=== PATIENT | female | born 1985 | race Caucasian/White ===

== ENCOUNTER 2019-12-04 07:12 | Emergency (ER) | payer OTHER ==
[2019-12-04] MEDS ORDERED: ACETAMINOPHEN 325 MG TABLET PO ONE (07:48)
--- NOTE | 2019-12-04 08:43 | RADIOLOGY REPORT (SQ) ---
EXAM DESCRIPTION: ANKLE RIGHT COMPLETE IMAGES COMPLETED DATE/TIME: 12/04/2019 8:33 am REASON FOR STUDY: pain, swelling COMPARISON: None. NUMBER OF VIEWS: Three views. TECHNIQUE: AP, lateral, and oblique radiographic images acquired of the right ankle. LIMITATIONS: None. FINDINGS: MINERALIZATION: Normal. BONES: There appears to be a minimally distracted avulsion injury of the navicular. Osseous minerali zation and alignment are otherwise normal with incidental note made of great toe metatarsophalangeal joint degenerative changes. JOINTS: No effusions. SOFT TISSUES: Mild medial soft tissue edema. OTHER: No other significant finding. IMPRESSION: Minimally distracted avulsion injury of the navicular with overlying soft tissue edema. TECHNICAL DOCUMENTATION: JOB ID: [id number] 2010 [employer]- All Rights Reserved Reading location - IP/workstation name: [email or web address]
--- NOTE | 2019-12-04 10:41 | ER Document Report ---
ED Extremity Problem, Lower - General Chief Complaint: Ankle Pain Stated Complaint: FALL/ANKLE PAIN Time Seen by Provider: 12/04/19 09:48 Primary Care Provider: ORTHOPEDICS [Provider Group] - Follow up as needed HERI PAREDES MD [ACTIVE STAFF] - Follow up as needed Notes: 34-year-old female presenting today with injury to right ankle which happened yesterday at 11 AM. She was walking down a step and her foot collapsed underneath her as she tripped on a step. Patient was initially able to walk after the injury. She went home and she rested. Took Mamadou aspirin which did not alleviate her pain. Also tried aspercreme with no relief. Had some tingling sensation yesterday. Reports non today. She woke up and her ankle was bruised this morning which prompted her to come to the ER. - Related Data Allergies/Adverse Reactions: clindamycin Allergy (Verified 12/04/19 07:54) Past Medical History - Social History Smoking Status: Former Smoker Family History: Reviewed & Not Pertinent Review of Systems - Review of Systems Constitutional: No symptoms reported EENT: No symptoms reported Cardiovascular: No symptoms reported Respiratory: No symptoms reported Gastrointestinal: No symptoms reported Genitourinary: No symptoms reported Female Genitourinary: No symptoms reported Musculoskeletal: See HPI Skin: See HPI Hematologic/Lymphatic: No symptoms reported Neurological/Psychological: No symptoms reported Physical Exam - Vital signs Vitals: Temp Pulse Resp BP Pulse Ox 97.9 F 107 H 18 152/102 H 100 12/04/19 07:19 12/04/19 07:19 12/04/19 07:19 12/04/19 07:19 12/04/19 07:19 Interpretation: Hypertensive - Notes Notes: Adult General: GENERAL: Alert, interacts well. No acute distress HEAD: Normocephalic, atraumatic EYES: Pupils equal, round and reactive to light. Extraocular movements intact. ENT: Airway patent. Nares patent. NECK: Full range of motion. Supple. Trachea midline. GENITOURINARY: Deferred EXTREMITIES: Right ankle is ttp along lateral mallelous, anterior ankle and medial mallelous. Associated swelling and bruising on medial ankle. 2+ capillary refill. Good sensation to light touch. 5/5 strength with flexion and extension. Limited ROM with inversion and eversion. Eversion causes pain. Moves all 4 extremities spontaneously. Normal dorsal pedis pulses bilaterally. No cyanosis. Right knee with anterior abrasion. Full ROM, no obvious deformities. Right knee is non tender to palpation. BACK: Back is non tender NEUROLOGICAL: Alert and oriented x3. Normal speech. Strength 5/ 5 in all extremities. PSYCH: Normal affect, normal mood. SKIN: 3 cm x 2 cm superficial abrasion on right knee. No swelling or warmth Course - Re-evaluation Re-evalutation: 12/04/19 10:41 Patient's x-ray of right ankle shows a minimally distracted avulsion injury of the navicular bone with overlying soft tissue edema. I discussed these findings with the patient. I will go ahead and order a posterior ankle splint. I dis cussed pain management with this patient. Patient states that she had Tylenol up in triage which helped alleviate her pain. Patient was able to drive here. I also offered an xray of the right knee. Patient declines at this time. I discussed pain control with the patient. Patient does not want any narcotics at this time. I discussed with her that she will need to follow-up with orthopedics in 2 to 3 days. Also discussed being nonweightbearing until she is seen by orthopedics. She can continue to take Tylenol help alleviate her pain. Return precautions discussed to include worsening pain or development of new symptoms. Patient acknowledges and verbalizes understanding of instructions and plan. All questions answered. Foot was reevaluated after splint was placed. Good capillary refill. No changes in neurovascular exam from previous exam. - Vital Signs Vital signs: Temp Pulse Resp BP Pulse Ox 98.1 F 95 18 147/93 H 97 12/04/19 11:43 12/04/19 11:43 12/04/19 11:43 12/04/19 11:43 12/04/19 11:43 Procedures - Immobilization Right Ankle Pre-Proc Neuro Vasc Exam: Normal Immobilizer type: Posterior ankle Performed by: PCT Post-Proc Neuro Vasc Exam: Unchanged from pre-exam Alignment checked and good: Yes Discharge - Discharge Clinical Impression: Navicular fracture, foot Qualifiers: Encounter type: initial encounter Fracture type: closed Fracture alignment: nondisplaced Laterality: right Qualified Code(s): S92.254A - Nondisplaced fracture of navicular [scaphoid] of right foot, initial encounter for closed fracture Condition: Stable Disposition: HOME, SELF-CARE Instructions: Use of Crutches ([facility]), Foot Fracture ([facility]) Additional Instructions: Your x-ray shows a small avulsion fracture of the right navicular bone. You have been placed into a splint. Please use crutches to ambulate at this time. Please follow-up with Dr. Paredes in orthopedics in 2 to 3 days. Please continue to use Tylenol to help alleviate your pain. Please elevate and ice your foot and ankle. You may use ice for 20 minutes every 2 hours. Please follow-up with the emergency department if you have worsening symptoms or development of new symptoms. Referrals: ORTHOPEDICS [Provider Group] - Follow up as needed HERI PAREDES MD [ACTIVE STAFF] - Follow up as needed
[2019-12-04 11:45] VITALS: BP 147/93
== END 2019-12-04 11:43 | disposition home or self-care (01) ==
LOC: ER 07:12
PROC: 2W3QX1Z Immobilization of Right Lower Leg using Splint (ICD-10-PCS; principal; 2019-12-04)
DX: S92.254A Nondisplaced fracture of navicular [scaphoid] of right foot, initial encounter for closed fracture (principal); M25.571 Pain in right ankle and joints of right foot; W10.9XXA Fall (on) (from) unspecified stairs and steps, initial encounter; Z88.1 Allergy status to other antibiotic agents; Z87.891 Personal history of nicotine dependence
CPT/HCPCS: 99283

== ENCOUNTER 2020-03-16 19:59 | Emergency (ER) | payer OTHER ==
[2020-03-16] MEDS ORDERED: DIAZEPAM 5 MG TABLET PO ONE (20:21)
[2020-03-16] MEDS ORDERED: NAPROXEN 250 MG TABLET PO ONE (20:21)
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
[2020-03-16 21:57] VITALS: BP 147/86
== END 2020-03-16 21:59 | disposition home or self-care (01) ==
LOC: ER 19:59
DX: S80.12XA Contusion of left lower leg, initial encounter (principal); S39.012A Strain of muscle, fascia and tendon of lower back, initial encounter; V49.40XA Driver injured in collision with unspecified motor vehicles in traffic accident, initial encounter; F17.200 Nicotine dependence, unspecified, uncomplicated; F12.10 Cannabis abuse, uncomplicated; F41.9 Anxiety disorder, unspecified
CPT/HCPCS: 72110; 99284